=== PATIENT | female | born 1970 | race Caucasian/White ===

== ENCOUNTER 2022-10-26 07:38 | Outpatient (CLI) | payer BC, SELFPAY ==
--- NOTE | ~2022-10-26 | XR_ITS ---
EXAMINATION: SCOLIOSIS DATE: 10/26/2022 08:03 INDICATION: Low back pain TECHNIQUE: Standing AP and lateral views of the thoracolumbar spine FINDINGS: There are 12 rib bearing thoracic vertebral bodies and 5 non-rib bearing lumbar type verteb ral bodies. There is no listhesis, compression deformity or vertebral body anomaly. There are 8 degr ees of thoracolumbar levocurvature. There is mild cervical, thoracic, and lumbar spondylosis. There i s mild irregularity of the T11 superior endplate. IMPRESSION: 1. 8 degrees of thoracolumbar levocurvature. 2. Mild irregularity of the T11 superior endplate which could reflect age-indeterminate fracture. Reviewed, dictated and finalized at location L. SH FILER IMPRESSION: 1. 8 degrees of thoracolumbar levocurvature. 2. Mild irregularity of the T11 superior endplate which could reflect age-indet erminate fracture.
== END 2022-10-26 07:39 | disposition home or self-care (01) ==
PROVIDERS: PCP Internal Medicine; Visit Provider Internal Medicine
DX: M54.50 Low back pain, unspecified (principal); G89.29 Other chronic pain; M54.9 Dorsalgia, unspecified
CPT/HCPCS: 72082

== ENCOUNTER 2023-01-01 10:41 | Outpatient (CLI) | payer BC, SELFPAY ==
--- NOTE | ~2023-01-01 | MR_ITS ---
EXAMINATION: MR brain/brain stem wo/w con DATE: 01/01/2023 11:38 INDICATION: Worsening with migraine headaches TECHNIQUE: Magnetic resonance imaging (MRI) of the brain and brainstem was performed without and with 12 mL Multihance intravenous contrast. Sequences included sagittal and axial T1-weighted SE, axial d iffusion-weighted FS SE, axial T2*-weighted GRE, axial 3D SWAN, axial T2-weighted FLAIR, and axial T2 -weighted FSE. Postcontrast axial and coronal T1-weighted SE was obtained. Apparent diffusion coeffic ient (ADC) maps were created. COMPARISON: None. FINDINGS: There are no areas of restricted diffusion to suggest acute infarction. Symmetric pattern of signal l oss on susceptibility weighted imaging at the bilateral red nuclei and dentate nuclei with the locati ons and symmetric distribution favoring dystrophic calcification or iron deposition over sequela of c hronic hemorrhage. No intracranial hemorrhage or abnormal intracranial mass lesion. There are a few t iny foci of nonspecific increased T2-weighted signal intensity in the cerebral periventricular white matter which is within normal limits for age. There are no intraparenchymal signal abnormalities seen on the other pulse sequences. The ventricles are symmetric and normal in size. There are no abnormal extra-axial fluid collections. Flow voids are seen in the cerebral arteries on the T2-weighted seque nces consistent with their expected patency. Visualized orbits and soft tissues are unremarkable. The re are no areas of abnormal enhancement on the post contrast images. IMPRESSION: 1. No acute intracranial process. Reviewed, dictated and finalized at location A.
== END 2023-01-01 10:42 | disposition home or self-care (01) ==
LOC: ANHIMG 10:43
PROVIDERS: PCP Internal Medicine; Visit Provider Internal Medicine
DX: G43.909 Migraine, unspecified, not intractable, without status migrainosus (principal)
CPT/HCPCS: 70553; A9577

== ENCOUNTER 2023-06-12 10:13 | Outpatient (CLI) | payer OTHER, BC, SELFPAY ==
--- NOTE | ~2023-06-12 | XR_ITS ---
[XR ribs BI 3V w CXR 2V ] INDICATION: Rib pain after recent fall TECHNIQUE: Frontal projection of the upper ribs, frontal projection of the lower ribs, oblique projec tion of all the ribs, frontal inspiratory chest x-ray for interpretation. FINDINGS: There are acute left nondisplaced sixth and eighth rib fractures. There are no soft tissue abnormality seen. There is bibasilar atelectasis/scarring. There are cholecystectomy clips. IMPRESSION: 1: Acute nondisplaced left sixth and eighth rib fractures. Reviewed, dictated and finalized at location A.
--- NOTE | ~2023-06-12 | XR_ITS ---
XR foot LT min 3V, XR ankle LT min 3V 06/12/2023 10:44 (accession [id number]), 06/12/2023 10:45 (accession [id number]) INDICATION: Left foot pain after fall PROCEDURE: 4 views left foot and 4 views left ankle COMPARISON: FINDINGS: Fracture, dislocation or subluxation is not identified. The soft tissues appear within norm al limits. No foreign bodies are identified. Small degenerative calcaneal enthesophyte. IMPRESSION: 1: NO ACUTE BONE OR JOINT ABNORMALITY IDENTIFIED. Reviewed, dictated and finalized at location A. IMPRESSION: 1: NO ACUTE BONE OR JOINT ABNORMALITY IDENTIFIED.
== END 2023-06-12 10:14 | disposition home or self-care (01) ==
PROVIDERS: PCP Internal Medicine; Visit Provider Internal Medicine
DX: M79.672 Pain in left foot (principal); M25.572 Pain in left ankle and joints of left foot; R07.81 Pleurodynia; S22.42XA Multiple fractures of ribs, left side, initial encounter for closed fracture; X58.XXXA Exposure to other specified factors, initial encounter
CPT/HCPCS: 71046; 71110; 73610; 73630

== ENCOUNTER 2023-06-21 07:54 | Outpatient (CLI) | payer OTHER, BC, SELFPAY ==
--- NOTE | ~2023-06-21 | US_ITS ---
EXAMINATION: US venous doppler [facility] DATE: 06/21/2023 12:05 INDICATION: Shortness of breath TECHNIQUE: Grayscale ultrasound images without and with compression and Doppler ultrasound images of the bilateral lower extremity veins were obtained. COMPARISON: None. FINDINGS: The visualized portions of right common femoral vein, profunda (deep) femoral vein, femoral vein, pop liteal vein, posterior tibial veins, peroneal veins, gastrocnemius vein and greater saphenous vein ou tflow are patent. The visualized portions of left common femoral vein, profunda femoral vein, femoral vein, popliteal v ein, posterior tibial veins, peroneal veins, gastrocnemius vein and greater saphenous vein outflow ar e patent. IMPRESSION: 1. No deep venous thrombosis in either lower limb. Reviewed, dictated and finalized at location A.
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
[2023-06-21 08:33] LABS: INR 0.9; Prothrombin Time 12.3 Seconds (11.1-14.7)
[2023-06-21 08:34] LABS: Anion Gap 9 mmol/L (8-16); Blood Urea Nitrogen 18 mg/dL (7-17); Carbon Dioxide 30 mmol/L (22-30); Chloride 100 mmol/L (98-107); Estimated Glomerular Filt Rate > 60; Glucose 94 mg/dL (65-110); Partial Thromboplastin Time 27.8 SECONDS (22.3-36.8); Potassium 4.1 mmol/L (3.4-5.0); Sodium 139 mmol/L (137-145)
[2023-06-21 08:46] LABS: D Dimer 0.73 ug/mL (<0.48)
== END 2023-06-21 07:55 | disposition home or self-care (01) ==
PROVIDERS: PCP Internal Medicine; Visit Provider Internal Medicine
DX: R06.02 Shortness of breath (principal); R06.09 Other forms of dyspnea; R79.89 Other specified abnormal findings of blood chemistry; S22.42XA Multiple fractures of ribs, left side, initial encounter for closed fracture; S22.080D Wedge compression fracture of T11-T12 vertebra, subsequent encounter for fracture with routine healing; K76.89 Other specified diseases of liver; Z90.49 Acquired absence of other specified parts of digestive tract
CPT/HCPCS: 36415; 71046; 71275; 80048; 85380; 85610; 85730; 93970; Q9967

== ENCOUNTER → 2023-10-06 12:44 | Outpatient (CLI) | payer OTHER, SELFPAY ==
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
--- NOTE | ~2023-10-06 | XR_ITS ---
EXAMINATION: XR lumbar spine min 4V DATE: 10/06/2023 13:07 INDICATION: Low back pain TECHNIQUE: Anteroposterior and lateral views in neutral, flexion, and extension of the lumbar spine w ere obtained. COMPARISON: 10/26/2022 FINDINGS: Bone alignment is normal. There is no hypermobility with flexion or extension. The vertebra l body heights are maintained. There is moderate loss of intervertebral disc space height at L5-S1. T here is no fracture. There is moderate facet joint osteoarthritis at L3-4, L4-5, and L5-S1. IMPRESSION: 1. Mild to moderate lumbar spondylosis without acute findings. Reviewed, dictated and finalized at location F. CAL RECORDS SUPERVISOR
== END ==
PROVIDERS: PCP Internal Medicine; Visit Provider Internal Medicine
DX: S82.55XA Nondisplaced fracture of medial malleolus of left tibia, initial encounter for closed fracture (principal); M47.816 Spondylosis without myelopathy or radiculopathy, lumbar region; M19.072 Primary osteoarthritis, left ankle and foot; X58.XXXA Exposure to other specified factors, initial encounter
CPT/HCPCS: 72110; 73718; 73721

== ENCOUNTER → 2023-10-25 12:44 | Outpatient (CLI) | payer BC, SELFPAY ==
--- NOTE | ~2023-10-25 | MR_ITS ---
MRI of the lumbar spine Clinical History: Pain Technique: Axial T2-weighted images, and sagittal T1-weighted, T2-weighted, and and T2 fat-sat images were acquired. Findings: There is no fracture or subluxation of the lumbar spine. Vertebral bodies maintain normal h eight and alignment. No suspicious bone marrow signal abnormality seen. At L1-L2, there is no disc bu lge or herniation. There is minimal facet arthropathy. No central canal stenosis or neural foraminal narrowing. At L2-L3, there is no disc bulge or herniation. There is mild to moderate facet arthritis. No central canal stenosis or neural foraminal narrowing. At L3-L4, there is no disc bulge or herniation. There is mild facet arthropathy. No central canal aramis nosis or neural foraminal narrowing. At L4-L5, there is no disc bulge or herniation. There is mild to moderate facet arthropathy. No centr al canal stenosis or definite neural foraminal narrowing. At L5-S1, there is minimal disc bulge and mild facet arthropathy. No central canal stenosis. There is mild bilateral neural foraminal narrowing. Paravertebral soft tissues are unremarkable. Impression: Mild degenerative spondylosis, as above. Reviewed, dictated and finalized at [facility]. FIC COUNTER Impression: Mild degenerative spondylosis, as above.
--- NOTE | ~2023-10-25 | MR_ITS ---
MRI of the thoracic spine Clinical History: Pain Technique: Axial T2-weighted and gradient images, and sagittal T1-weighted, T2-weighted, and STIR michael ges were acquired. Findings: There is an acute, mild compression fracture deformity of T7, with marrow edema and minimal loss of height. No other fracture or subluxation seen in the thoracic spine. No other bone marrow si gnal abnormality seen. No significant disc bulge or herniation seen at any thoracic level. No spinal canal stenosis or cord compression identified at any thoracic level. No epidural mass or collection seen. Paravertebral soft tissues are unremarkable. Impression: Acute, mild compression fracture deformity of T7. Reviewed, dictated and finalized at location . DENTIAL PROGRAM MANAGER Impression: Acute, mild compression fracture deformity of T7.
== END ==
PROVIDERS: PCP Internal Medicine; Visit Provider Internal Medicine
DX: M43.06 Spondylolysis, lumbar region (principal); S22.060A Wedge compression fracture of T7-T8 vertebra, initial encounter for closed fracture; X58.XXXA Exposure to other specified factors, initial encounter
CPT/HCPCS: 72146; 72148

== ENCOUNTER 2023-12-22 13:45 | Outpatient (CLI) | payer BC, SELFPAY ==
--- NOTE | ~2023-12-22 | DEXA_ITS ---
Bone Density Report Name: LIAM FUENTES Age: 53 Sex: Female Ethnicity: White Date of : 1970 Indication: postmenopausal; screening for osteoporosis; height loss; prior fracture; hysterectomy; Referring Provider: TWILA GALAVIZ Study: Bone densitometry was performed. Exam Date: December 22, 2023 Accession number: [id number] Bone Density: Region BMD T-score Z-score Classification AP Spine (L1-L4) 0.783 -2.4 -1.5 Osteopenia Femoral Neck (Left) 0.704 -1.3 -0.4 Osteopenia Total Hip (Left) 0.756 -1.5 -0.9 Osteopenia Femoral Neck (Right) 0.668 -1.6 -0.7 Osteopenia Total Hip (Right) 0.749 -1.6 -1.0 Osteopenia Total Hip Mean 0.753 -1.6 -1.0 Osteopenia World Health Organization criteria for BMD impression classify patients as: Normal (T-score at or above -1.0), Osteopenia (T-score between -1.0 and -2.5), or Osteoporosis (T-score at or below -2.5). 10-year Fracture Risk: FRAX not reported because: Prior hip or vertebral fracture Clinical Information Provided by Patient: Have had a previous hip or vertebral fracture Has had a low trauma fracture Has used the following medications: Calcium, MTV Has the following medical conditions: Hysterectomy Patient maximum height was 67 Menopause Age: 46 Drinks caffeinated beverages Onset of menses at age 16 Number of children 3 Impression: The patient has low bone mass, based on the Total Spine T-score. The patient has risk factors, including: previous fracture. Discussion: INCREASED RISK OF FRACTURE DUE TO HISTORY OF FRACTURE. The patient's previous fracture puts the patient at high risk of a future fracture. In untreated patients, the risk of osteoporotic fracture increases approximately two-fold for each 1.0 SD decrease in T-score. Low bone density is not the only risk factor for fracture; also consider factors such as patient's age, frailty or poor health, risk of falling, risk of injury, previous osteoporotic fracture, family history of osteoporosis, cigarette smoking, low body weight, etc. Not everyone with a low trauma fracture has osteoporosis; osteomalacia and other metabolic bone disorders should also be considered. Patients who have osteoporosis should be evaluated for specific diseases and conditions (secondary causes) that may cause or contribute to bone loss and fracture risk. National Osteoporosis Foundation (NOF) recommends pharmacologic intervention for patients with a prior hip or vertebral fracture regardless of BMD T-score. The patient should follow a healthful lifestyle (good nutrition with adequate calcium and vitamin D, and appropriate weight-bearing exercise). Follow-Up: Consider a repeat BMD and Vertebral Fracture Assessment (VFA) exam in 2 years or sooner if medically necessary, to reassess this patient's status. Reported by: AINSLEY on 12/22/2023 2:11:0
== END 2023-12-22 13:46 ==
LOC: MICIMG 13:46
PROVIDERS: PCP Internal Medicine; Visit Provider Internal Medicine
DX: M81.0 Age-related osteoporosis without current pathological fracture (principal); M85.88 Other specified disorders of bone density and structure, other site; M85.852 Other specified disorders of bone density and structure, left thigh; M85.851 Other specified disorders of bone density and structure, right thigh
CPT/HCPCS: 77080

== ENCOUNTER 2024-07-27 10:17 | Outpatient (CLI) | payer BC, SELFPAY ==
--- NOTE | ~2024-07-27 | XR_ITS ---
EXAMINATION: XR chest 2V DATE: 07/27/2024 10:26 INDICATION: Cough. Chest pain. Shortness of breath. TECHNIQUE: Frontal and lateral views of the chest were obtained. COMPARISON: Chest 2 views 06/21/2023, chest CT 06/21/2023 FINDINGS: There is mild scarring at the lung apices. There is a nipple shadow in left lower lung zone . No pleural effusion or pneumothorax. The heart size is normal. There are surgical changes of right shoulder. Surgical clips in the right upper quadrant are likely from cholecystectomy. IMPRESSION: 1. Stable mild scarring at the lung apices. Reviewed, dictated and finalized at location A. AINER WASHER MACHINE
== END 2024-07-27 10:18 | disposition home or self-care (01) ==
LOC: GOSHIMG 10:19
PROVIDERS: PCP Internal Medicine; Visit Provider Internal Medicine
DX: R05.9 Cough, unspecified (principal)
CPT/HCPCS: 71046

== ENCOUNTER 2024-07-27 10:31 | Outpatient (CLI) | payer BC, SELFPAY ==
[2024-07-27 14:29] LABS: Basophils Percent Auto 0.4 % (0.2-1.2); Eosinophils Absolute Auto 0.1 K/mm3 (0-0.3); Eosinophils Percent Auto 0.6 % (0-4.4); Hematocrit 41.9 % (37.0-47.0); Hemoglobin 13.7 g/dL (12.0-15.0); Immature Granulocyte Absolute 0.02 K/mm3 (0.00-0.031); Immature Granulocyte Percent A 0.2 % (0-0.5); Lymphocytes Absolute Auto 2.36 K/mm3 (0.9-3.2); Lymphocytes Percent Auto 21.8 % (18.3-44.2); Mean Corpuscular HGB Conc 32.7 g/dl (32-36); Mean Corpuscular Hemoglobin 31.4 pg (26-34); Mean Corpuscular Volume 95.9 fl (80-100); Mean Platelet Volume 10.1 fl (7.4-10.4); Monocytes Absolute Auto 1.1 K/mm3 (0.1-0.6); Monocytes Percent Auto 10.1 % (2.6-8.5); Neutrophils Absolute Auto 7.3 K/mm3 (1.3-6.7); Neutrophils Percent Auto 66.9 % (45.5-73.1); Platelet Count Result 327 k/mm3 (150-375); Red Blood Count 4.37 M/mm3 (4.2-5.4); Red Cell Distribution Width 12.4 % (11.5-14.5); White Blood Count 10.8 K/mm3 (4.5-10.0)
== END 2024-07-27 10:32 | disposition home or self-care (01) ==
LOC: ANHGOSHLAB 10:32
PROVIDERS: PCP Internal Medicine; Visit Provider Internal Medicine
DX: R05.9 Cough, unspecified (principal)
CPT/HCPCS: 36415; 85025

== ENCOUNTER 2024-11-21 15:01 | Outpatient (CLI) | payer BC, SELFPAY ==
--- OUTSIDE RECORDS SUMMARY | 2024-11-21 16:51 | XMS_ITS | Clinical Summary ---
Author Organization [facility] Address [address] [place] [address] Care Team Providers Care Tool Engine Lathe Set Up Operator Name Role Phone Lisa Aguirre DO Primary Care Provider [phone] Allergies Active Allergy Reactions Criticality Noted Date Comments Sulfa (Sulfonamide Antibiotics) Hives High 01/18 Medications No known medications Active Problems No known active problems Resolved Problems Problem Noted Date Diagnosed Date Resolved Date TVH/BS, (584g uterus), A&P, sling 02/12, [id number] 02/12/2015 01/31/2019 Encounters Date Type Department Care Team Description 11/07/2024 External Device Data STL ABSTRACTION Provider, Abstract 10/23/2024 External Device Data STL ABSTRACTION Provider, Abstract 10/11/2024 External Device Data STL ABSTRACTION Provider, Abstract from Last 3 Months Family History Medical History Relation Name Comments Breast Cancer Maternal Aunt Relation Name Status Comments Maternal Aunt Social History Tobacco Use Types Packs/Day Years Used Date Smoking Tobacco: Former Cigarettes Q uit: 02/07/2005 Smokeless Tobacco: Never Tobacco Cessation:Counseling Given: Not Answered Alcohol Use Standard Drinks/Week Comments Yes 0 (1 standard drink = 0.6 oz pur e alcohol) social Feeling Safe Answer Date Recorded Within the last year, have y ou been afraid of your partner or ex-partner? No 02/06/2020 Within the last year, have y ou been humiliated or emotionally abused in other ways by your partner or ex-partner? No Within the last year, have y ou been kicked, hit, slapped, or otherwise physically hurt by your partner or ex-partner? No 02/06/2020 Within the last year, have y ou been raped or forced to have any kind of sexual activity by your partner or ex-partner? No 02/06/2020 Social Connections Answer Date Recorded In a typical week, how many times do you talk on the phone with family, friends, or neighbors? Three times a week 02/06/2020 How often do you get togethe r with friends or relatives? Once a week 02/06/2020 How often do you attend chur or jain services? More than 4 times per year 02/06/2020 Do you belong to any clubs o r organizations such as scientology groups, unions, fraternal or athletic groups, or school groups? Yes 02/06/2020 Attends Club or Organization Meetings Not on zack e 02/06/2020 Are you , , di vorced, , never , or living with a partner? 02/06/2020 Financial Resource Strain Answer Date R ecorded How hard is it for you to pa y for the very basics like food, housing, medical care, and heating? Not hard at all 02/06/2020 Food Insecurity Answer Date Recorded Within the past 12 months, y ou worried that your food would run out before you got the money to buy more. Never true 02/06/20 20 Within the past 12 months, t he food you bought just didn't last and you didn't have money to get more. Never true 02/06/2020 Transportation Needs Answer Date Record ed In the past 12 months, has l ack of transportation kept you from medical appointments or from getting medications? No 01/18 In the past 12 months, has l ack of transportation kept you from meetings, work, or from getting things needed for daily living? No 02/06/2020 Comments No Sex and Gender Information Value Date Recorded Sex Assigned at Not on file Legal Sex Female 10:23 AM CDT Gender Identity Not on file Sexual Orientation Not on file Last Filed Vital Signs Vital Sign Reading Time Taken Comments Blood Pressure 122/80 06/04/2024 8:56 AM CDT Pulse 61 04/08/2021 3:35 PM CDT Temperature 36.4 C (97.5 F) 04/08/2021 3:35 PM CDT Respiratory Rate 17 04/08/2021 3:35 PM CDT Oxygen Saturation 98% 04/08/2021 3:35 PM CDT Inhaled Oxygen Concentration - - Weight 64 kg (141 lb) 06/04/2024 8:56 AM CDT Height 170.2 cm (5' 7 ) 06/04/2024 8:56 AM CDT Body Mass Index 22.08 06/04/2024 8:56 AM CDT Plan of Treatment Upcoming Encounters Date Type Department Care Team (Late st Contact Info) Description 06/05/2025 9:00 AM CDT Office Visit [facility] TRANSIT WORKER - [facility] [address] [facility] [address] [place] [id number] [place] [address] [facility] [address] [place] [address] Health Maintenance Due Date Last Done Comments DTAP/TDAP/TD VACCINES (1 - Tdap) 1990 HEPATITIS B VACCINES (1 of 3 - 19+ 3-dose series) 1990 CERVICAL CANCER SCREENING 2001 COLORECTAL SCREENING 2016 Colorectal Cancer Screening 2016 FIT-DNA Q 3 years 2016 FIT/FOBT Q 1 year 2016 Flex Sig/CT Colonography Q 5 years 2016 ZOSTER VACCINE (1 of 2) 2021 INFLUENZA VACCINE (#1) 2024 Preventative Visit- Commercial 09/19/2024 0 06/04/2024, 05/30/2023, 05/11/2022, Additional history exists BREAST CANCER SCREENING 02/20/2025 02/21/20 24, 07/27/2022, 05/05/2021, Additional history exists Medical Devices Implanted Type Area Instructional Services Librarian Device Identifier Shelf Expiration Date Model / Serial / Lot Sling Desara System Duek-Ds01 - [id number] Implanted:Qty: 1 on 02/12/2015 by Davon Antoine MD at [facility] Sling Urethra [email or web address] 05/18/2017 DUKE-DS01 / / [id number] Procedures Procedure Name Priority Date/Time Associated Diagnosis Comments MAMMO 3D EFRAIN SCREEN BILAT W OR WO CAD Routine 02/21/2024 2:58 PM CDT Encounter for screening mammogram for malignant neoplasm of breast from Last 3 Months or Most Recently Relevant to Health Maintenance Results * MAMMO SCRN BILAT 3D EFRAIN W OR WO CAD (02/21/2024 2:58 PM CDT) Anatomical Region Laterality Modality Breast Bilateral Mammography 02/21/2024 2:58 PM CDT Impressions 02/22/2024 2:50 PM CDT IMPRESSION: Normal screening mammogram. OVERALL FINAL ASSESSMENT: BI-RADS CATEGORY 1 - Negative Recommend annual screening mammography. DICTATION LOCATION: [facility] Narrative 02/22/2024 2:50 PM CDT EXAM: BILATERAL SCREENING DIGITAL MAMMOGRAM WITH 3D TOMOSYNTHESIS AND CAD DATE: 02/21/2024 2:58 PM INDICATION: Screening. COMPARISON STUDIES: 07/27/2023 through 03/26/2020 BREAST COMPOSITION: Heterogeneously dense, which limits the sensitivity of mammography FINDINGS: There is no concerning mass, asymmetry, malignant microcalcification or area of architectural distortion in either breast. There is no change when compared to previous mammograms. Computer aided diagnosis was utilized. 3D tomosynthesis performed in 4 standard projections reveals no evidence of architectural distortion or mass. Procedure Note Galen Lion MD - 02/22/2024 EXAM: BILATERAL SCREENING DIGITAL MAMMOGRAM WITH 3D TOMOSYNTHESIS AND CAD DATE: 02/21/2024 2:58 PM INDICATION: Screening. COMPARISON STUDIES: 07/27/2023 through 03/26/2020 BREAST COMPOSITION: Heterogeneously dense, which limits the sensitivity of mammography FINDINGS: There is no concerning mass, asymmetry, malignant microcalcification or area of architectural distortion in either breast. There is no change when compared to previous mammograms. Computer aided diagnosis was utilized. 3D tomosynthesis performed in 4 standard projections reveals no evidence of architectural distortion or mass. IMPRESSION: Normal screening mammogram. OVERALL FINAL ASSESSMENT: BI-RADS CATEGORY 1 - Negative Recommend annual screening mammography. DICTATION LOCATION: [facility] Thomas Dan MD MAMMO ORDERABLES Final Result from Last 3 Months or Most Recently Relevant to Health Maintenance Insurance CIGNA OA HMO POS [facility] BLUE ACCESS CHOICE Advance Directives For more information, please contact: [phone] * Full Code (Latest Code Status on File) Date Activated Date Inactivated Comments 02/12/2015 6:05 PM 02/13/2015 9:20 PM * Full Code Date Activated Date Inactivated Comments 02/12/2015 9:55 AM 02/12/2015 6:05 PM Care Teams Tool Engine Lathe Set Up Operator Relationship Specialty Start Date End Date Lisa Aguirre DO PCP - General Family Practice 03/26/20
--- NOTE | 2024-11-22 10:48 | WPDPFTINT ---
PFT Procedure Performed PFT Procedure Performed Spirometry with Pre/Post Bronchodilator Plethysmography (Lung Vol) Diffusing Cap (DLCO) Flow Vol Loop PFT Interpretation Lung volumes were measured with the body plethysmography method. Lung volumes are unremarkable. Spirometry showed normal expiratory flow rates and a low FEV1 to FVC ratio of 67%, indicative of obstructive airway disease. Following administration of a bronchodilator there was no significant increase in expiratory flow rates. Lung diffusion capacity is within the normal range. The flow-volume loop is unremarkable. Impression: Mild obstructive airway disease with no response to bronchodilators on this testing. Lung diffusion capacity within the normal range.
== END 2024-11-21 15:02 | disposition home or self-care (01) ==
LOC: ANHPFT 15:04
PROVIDERS: PCP Internal Medicine; Visit Provider Internal Medicine
DX: J44.9 Chronic obstructive pulmonary disease, unspecified (principal)
CPT/HCPCS: 94060; 94726; 94729

== ENCOUNTER 2025-08-29 01:19 | Day surgery (SDC) | payer OTHER, SELFPAY ==
[2025-08-12 10:10] VITALS: BMI 21.9
--- OUTSIDE RECORDS SUMMARY | 2025-08-29 01:21 | XMS_ITS | Clinical Summary ---
Author Organization [facility] Address [address] [place] [address] Care Team Providers Care Technical Documentation Specialist Name Role Phone Lisa Aguirre DO Primary Care Provider [phone] Allergies Active Allergy Reactions Criticality Noted Date Comments Sulfa (Sulfonamide Antibiotics) Hives High 01/18 Medications alendronate (FOSAMAX) 70 mg tablet Take 1 Tablet by mouth every 7 days. 05/17/2025 Active MULTIVITAMIN ORAL Take 1 Tablet by mouth daily. Active VITAMIN B COMPLEX ORAL Take 1 Tablet by mouth daily. Active FIBER ORAL Take 1 Tablet by mouth daily. Active ASCORBIC ACID, VITAMIN C, ORAL Take 1 Tablet by mouth daily. Active CALCIUM ORAL Take 1 Tablet by mouth daily. Active estradioL (ESTRACE) 1 mg tablet Take 1 Tablet (1 mg) by mouth daily. 90 Tablet 2 06/14/2025 Active Active Problems No known active problems Resolved Problems Problem Noted Date Diagnosed Date Resolved Date TVH/BS, (584g uterus), A&P, sling 02/12, [id number] 02/12/2015 01/31/2019 Encounters Date Type Department Care Team Description 08/27/2025 External Device Data STL ABSTRACTION Provider, Abstract 08/13/2025 7:27 AM MENHADEN VESSEL PILOT - 08/13/2025 11:59 PM [facility] Hospital Encounter [facility] [address] [address] Thomas Dan MD Discharge Disposition: Home or Self Care 08/06/2025 External Device Data STL ABSTRACTION Provider, Abstract 07/17/2025 External Device Data STL ABSTRACTION Provider, Abstract 06/07/2025 Results Follow-Up [facility] AUDIT MACHINE OPERATOR - [place] [address] [place] [address] Thomas Dan MD ESTRADIOL, TESTOSTERONE FREE AND TOTAL 06/05/2025 9:00 AM CDT Office Visit [facility] AUDIT MACHINE OPERATOR - [facility] [address] [place] [address] Thomas Dan MD Well woman exam with routine gynecological exam (Primary Dx); Encounter for screening mammogram for malignant neoplasm of breast; Vasomotor symptoms due to menopause from Last 3 Months Family History Medical History Relation Name Comments Breast Cancer Maternal Aunt Relation Name Status Comments Maternal Aunt Social History Tobacco Use Types Packs/Day Years Used Date Smoking Tobacco: Former Cigarettes 0 Q uit: 02/07/2005 Smokeless Tobacco: Never Tobacco Cessation:Counseling Given: No Alcohol Use Standard Drinks/Week Comments Yes 0 [...] 02/06/2020 How often do you attend chur ch or restorationist services? More than 4 times per year 02/06/2020 Do you belong to any clubs o r organizations such as orthodoxy groups, unions, fraternal or athletic groups, or [...] Sign Reading Time Taken Comments Blood Pressure 102/70 06/05/2025 8:55 AM CDT Pulse 61 04/08/2021 3:35 PM CDT Temperature 36.4 C (97.5 F) 04/08/2021 3:35 PM CDT Respiratory Rate 17 04/08/2021 3:35 PM CDT Oxygen Saturation 98% 04/08/2021 3:35 PM CDT Inhaled Oxygen Concentration - - Weight 64.4 kg (142 lb) 06/05/2025 8:55 AM CDT Height 170.2 cm (5' 7) 06/05/2025 8:55 AM CDT Body Mass Index 22.24 06/05/2025 8:55 AM CDT Plan of Treatment Upcoming Encounters Date Type Department Care Team (Late st Contact Info) Description 06/10/2026 8:45 AM CDT Office Visit [facility] AUDIT MACHINE OPERATOR - [facility] [address] [facility] [address] [place] [address] [place] [address] [facility] [address] [place] [address] Health Maintenance Due Date Last Done Comments DTAP/TDAP/TD VACCINES ( Tdap) 1990 HEPATITIS B VACCINES (1 of 3 - 19+ 3-dose series) 1990 COLORECTAL SCREENING 2016 Colorectal Cancer Screening 2016 FIT-DNA Q 3 years 2016 FIT/FOBT Q 1 year 2016 Flex Sig/CT Colonography Q 5 years 2016 ZOSTER VACCINE (1 of 2) 2021 INFLUENZA VACCINE (#1) 2025 BREAST CANCER SCREENING 08/13/2026 08/13/20, 02/21/2024, 07/27/2022, Additional history exists Preventative Visit- Commercial Completed 0 06/05/2025, 06/04/2024, 05/30/2023, Additional history exists Medical Devices Implanted Type Area Tobacco Wrapping Machine Tender Device Identifier Shelf Expiration Date Model / Serial / Lot Sling Desara System Duke-Ds01 - [id number] Implanted:Qty: 1 on 02/12/2015 by Davon Antoine MD at [facility] Sling Urethra [employer] 05/18/2017 DUKE-DS01 / / [id number] Procedures Procedure Name Priority Date/Time Associated Diagnosis Comments MAMMO 3D EFRAIN SCREEN BILAT W OR WO CAD Routine 08/13/2025 7:32 AM MENHADEN VESSEL PILOT Encounter for screening mammogram for malignant neoplasm of breast ESTRADIOL Routine 06/06/2025 2:00 PM CDT Vasomotor symptoms due to menopause TESTOSTERONE FREE AND TOTAL Routine 06/06/2025 2:00 PM CDT Vasomotor symptoms due to menopause from Last 3 Months Results * MAMMO 3D EFRAIN SCREEN BILAT W OR WO CAD (08/13/2025 7:32 AM MENHADEN VESSEL PILOT) Anatomical Region Laterality Modality Breast Bilateral Mammography 08/13/2025 7:34 AM MENHADEN VESSEL PILOT Impressions 08/13/2025 11:32 AM MENHADEN VESSEL PILOT IMPRESSION: Stable bilateral screening mammogram. Recommend routine yearly followup. OVERALL FINAL ASSESSMENT: BI-RADS CATEGORY 1: Negative DICTATION LOCATION: Home Narrative 08/13/2025 11:32 AM MENHADEN VESSEL PILOT BILATERAL SCREENING DIGITAL MAMMOGRAM WITH 3D TOMOSYNTHESIS AND CAD DATE: 08/13/2025 7:32 AM HISTORY: Annual screening study. COMPARISON: Mammograms back to 2020 TECHNIQUE: CC and MLO views of the breasts were obtained digitally and reviewed with CAD. Tomosynthesis was performed in all projections. BREAST COMPOSITION: The breasts are heterogeneously dense, which may obscure small masses FINDINGS: No new or suspicious masses, suspicious calcifications, or areas of asymmetry or distortion are identified. Thomas Dan MD MAMMO ORDERABLES Final Result * TESTOSTERONE FREE AND TOTAL (06/06/2025 2:00 PM CDT) TESTOSTERONE 11 2 - 45 ng/dL [employer] Comment: For additional information, please refer to https://education.[employer]/faq/JZU844 (This link is being provided for informational/educational purposes only.) (Note) This test was developed and its analytical performance characteristics have been determined by [employer]. It has not been cleared or approved by the FDA. This assay has been validated pursuant to the CLIA regulations and is used for clinical purposes. TESTOSTERONE FREE 1.1 0.1 - 6.4 pg/mL [employer] Comment: (Note) This test was developed and its analytical performance characteristics have been determined by [employer]. It has not been cleared or approved by the FDA. This assay has been validated pursuant to the CLIA regulations and is used for clinical purposes. [facility] [employer] [address] [place] [address],[address] [facility] [address] Katiuska Mock MD, PhD Test Performed at: [facility] [address] [place] [address], [address] [place] [address] Katiuska Mock MD,PhD Blood 06/06/2025 2:00 PM CDT 06/06/2025 2:01 PM CDT Thomas Dan MD CHEMISTRY ORDERABLES Final Re sult [facility] [phone] [employer] [address] [place] [address], [address] [place] [address] * ESTRADIOL (06/06/2025 2:00 PM CDT) ESTRADIOL 18 pg/mL Inaika sarah Arguelles Comment: Reference Range Follicular Phase: 19-144 Mid-Cycle: 64-357 Luteal Phase: 56-214 Postmenopausal: < or = 31 Reference range established on post-pubertal patient population. No pre-pubertal reference range established using this assay. For any patients for whom low Estradiol levels are anticipated (e.g. males, pre-pubertal children and hypogonadal/post-menopausal females), the Inaika [facility] Estradiol, Ultrasensitive, LCMSMS assay is recommended (order code 28369). Please note: patients being treated with the drug fulvestrant (Faslodex(R)) have demonstrated significant interference in immunoassay methods for estradiol measurement. The cross reactivity could lead to falsely elevated estradiol test results leading to an inappropriate clinical assessment of estrogen status. Inaika order code [id number], Ultrasensitive LC/MS/MS demonstrates negligible cross reactivity with fulvestrant. Test Performed at: [facility] [place] [address] Administration MICHELLE [place] [phone] L[employer] Fang Vo Blood 06/06/2025 2:00 PM CDT 06/06/2025 2:01 PM CDT us Thomas Dan MD CHEMISTRY ORDERABLES Final Re sult [facility] [phone] [place] [address] Administration MICHELLE [place] [phone] from Last 3 Months Insurance CIGNA OA HMO POS [facility] OPTIONS PPO [id number] Advance Directives For more information, please contact: [phone] * Full Code (Latest Code Status on File) Date Activated Date Inactivated Comments 02/12/2015 6:05 PM 02/13/2015 9:20 PM * Full Code Date Activated Date Inactivated Comments 02/12/2015 9:55 AM 02/12/2015 6:05 PM Care Teams Technical Documentation Specialist Relationship Specialty Start Date End Date Lisa Aguirre DO PCP - General Family Practice 03/26/20
--- OUTSIDE RECORDS SUMMARY | 2025-08-29 01:21 | XMS_ITS | Encounter Summary ---
Author Organization [facility] Address [address] [place] [address] Care Team Providers Care Community Worker Name Role Phone Lisa Aguirre DO Primary Care Provider [phone] Encounter Details Date Type Department Care Team (Late st Contact Info) Description 08/27/2025 External Device Data STL ABSTRACTION Provider, Abstract NO ADDRESS ON FILE Social History Tobacco Use Types Packs/Day Years Used Date Smoking Tobacco: Former Cigarettes 0 Q uit: 02/07/2005 Smokeless Tobacco: Never Alcohol Use Standard Drinks/Week Comments Yes 0 [...] often do you attend chur ch or gnosticism services? More than 4 times per year 02/06/2020 Do you belong to any clubs o r organizations such as latter day groups, unions, fraternal or athletic groups, or [...] on file Sexual Orientation Not on file documented as of this encounter Plan of Treatment Upcoming Encounters Date Type Department Care Team (Late st Contact Info) Description 06/10/2026 8:45 AM CDT Office Visit [facility] CORPORATE ANALYST - [facility] [address] [facility] [address] [place] [address] [place] [address] [facility] [address] [place], [place] [id number] documented as of this encounter Visit Diagnoses Not on filedocumented in this encounter Care Teams Community Worker Relationship Specialty Start Date End Date Sorenanisha DO Lisa PCP - General Family Practice 03/26/20 documented as of this encounter
[2025-08-29 10:23] VITALS: BP 113/71; PULSE 73; RESP 16; TEMP 36.9; O2SAT 97; BMI 21.1
[2025-08-29] MEDS: LACTATED RINGERS 1,000 ML 150 ML IV CONT (10:27)
--- NOTE | 2025-08-29 10:30 | WPDANESEPPF ---
Anes - Initial Pre Proc Eval Procedure: Operation Date: 08/29/25 11:30 Proposed Procedures p Diagnostic Colonoscopy - David Clayton MD Date/Time: 08/29/25 10:30 Surgeon: David Clayton MD Pre Op Diagnosis: Constipation, unspecified Patient Data Age: 55 Gender: F Height: 1.7 m Weight: 61.2 kg Last Vital Signs Temp 36.9 C 08/29/25 10:23 Pulse 73 08/29/25 10:23 Resp 16 08/29/25 10:23 BP 113/71 08/29/25 10:23 Pulse Ox 97 08/29/25 10:23 O2 Del Method Room Air 08/29/25 10:23 Allergies Allergy/AdvReac Type Severity Reaction Status Date / Time Sulfa (Sulfonamide AdvReac Unknown Verified 08/29/25 10:21 Antibiotics) Home Medications ?Medication ?Instructions ?Recorded ?Confirmed ?Type multivitamin 1 tablet PO DAILY 10/01/22 08/29/25 History vitamin B complex 1 tablet PO DAILY 10/01/22 08/29/25 History ascorbate calcium (vitamin C) 500 500 mg PO DAILY 11/05/22 08/29/25 History mg tablet calcium carbonate 650 mg PO DAILY 11/05/22 08/29/25 History inulin 2 gram chewable tablet 6 g PO DAILY 11/05/22 08/12/25 History (Fiber Gummies) acetaminophen 500 mg tablet 500 mg PO Q6H PRN pain 06/14/23 08/12/25 History albuterol sulfate 90 mcg/actuation 1 puff inhalation Q4H PRN 11/14/24 08/12/25 Rx aerosol inhaler (Ventolin HFA) shortness of breath or wheezing #8.5 grams alendronate 70 mg tablet 70 mg PO WEEKLY #12 tabs 04/22/25 08/29/25 Rx cyclobenzaprine 10 mg tablet 10 mg PO TID PRN muscle spasm #30 05/07/25 08/12/25 Rx tabs estradiol 1 mg BYMOUTH DAILY 07/24/25 08/29/25 History Patient hx anesthesia problems: none Family hx anesthesia problems: none Results Review: All pre-operative results and documents have been reviewed as part of the pre-operative evaluation. [facility] Past Medical History Medical History Knee pain Constipation Dyslipidemia Breast cancer screening Osteopenia Closed left ankle fracture SOFIA (dyspnea on exertion) Left ankle injury Rib fractures Encounter for preventive health examination BMI 23.0-23.9, adult Motion sickness BMI 22.0-22.9, adult Follow up Migraines Levoscoliosis Chronic low back pain Colon cancer screening Encounter to establish care Anxiety Generalized headaches BMI 21.0-21.9, adult Seasonal allergies Surgical History Surgical History History of cholecystectomy Laparoscopic- 1994 S/P shoulder surgery R side-arthroscopic History of bladder surgery Bladder sling H/O total hysterectomy Family History Family History Mother Dementia Unknown Asthma Hypertension Depression Diabetes mellitus Cerebrovascular accident High cholesterol Cervical cancer Social History Social History Social History: caffeine use Smoking status: Former smoker Second hand tobacco smoke exposure: No Alcohol intake: current Alcohol use details: Liquor- 1 drink 3-4x/ week Substance use: never Lack of Transportation: No Lack of Food: Never True Current Housing: I Have Housing Concerned About Future Housing: No Difficulty Paying Gas/Electric Bills: No Difficulty Paying for Meds: No Currently Unemployed: No Education: Bachelor's Degree Difficulty w/ Childcare or Family Care: No Living arrangements: with family Gender identity (if verbalized by the patient): Female Anes - Eval Final PreProcedure Day of Procedure 08/29/25 10:30 Patient weight: normal Heart: regular rate and rhythm Lungs: normal air movement Airway: Mallampati scale class II Neurological: alert and oriented Last oral intake: >/= 8 hours ASA classification: II Emergent: no Anesthetic plan: proceed Anesthesia type and monitoring: general GIVS and standard monitoring Results Review: All pre-operative results and documents have been reviewed as part of the pre-operative evaluation. Informed Consent: The patient's anesthetic plan and its attendant risks and benefits were discussed with the patient/family/POA. Questions were solicited and answers provided to the satisfaction of the patient/family/POA.
--- NOTE | 2025-08-29 10:32 | PM.IMHP2 ---
H&P: HPI History of Present Illness Date/Time: 08/29/25 10:32 Chief Complaint: Screening colonoscopy Narrative: This is the patient's 2nd colonoscopy. She had a colonoscopy 15 years ago. There are no GI symptoms and there is no family history of colorectal cancer. Review of Systems Review of Systems: All systems reviewed & are unremarkable except as noted in HPI and below PMFSH Past Medical History Medical History Knee pain Constipation Dyslipidemia Breast cancer screening Osteopenia Closed left ankle fracture SOFIA (dyspnea on exertion) Left ankle injury Rib fractures Encounter for preventive health examination BMI 23.0-23.9, adult Motion sickness BMI 22.0-22.9, adult Follow up Migraines Levoscoliosis Chronic low back pain Colon cancer screening Encounter to establish care Anxiety Generalized headaches BMI 21.0-21.9, adult Seasonal allergies Surgical History Surgical History History of cholecystectomy Laparoscopic- 1994 S/P shoulder surgery R side-arthroscopic History of bladder surgery Bladder sling H/O total hysterectomy Family History Family History Mother Dementia Unknown Asthma Hypertension Depression Diabetes mellitus Cerebrovascular accident High cholesterol Cervical cancer Social History Social History Social History: caffeine use Smoking status: Former smoker Second hand tobacco smoke exposure: No Alcohol intake: current Alcohol use details: Liquor- 1 drink 3-4x/ week Substance use: never Lack of Transportation: No Lack of Food: Never True Current Housing: I Have Housing Concerned About Future Housing: No Difficulty Paying Gas/Electric Bills: No Difficulty Paying for Meds: No Currently Unemployed: No Education: Bachelor's Degree Difficulty w/ Childcare or Family Care: No Living arrangements: with family Gender identity (if verbalized by the patient): Female Meds Home Medications and Allergies Home Medications ?Medication ?Instructions ?Recorded ?Confirmed ?Type multivitamin 1 tablet PO DAILY 10/01/22 08/29/25 History vitamin B complex 1 tablet PO DAILY 10/01/22 08/29/25 History ascorbate calcium (vitamin C) 500 500 mg PO DAILY 11/05/22 08/29/25 History mg tablet calcium carbonate 650 mg PO DAILY 11/05/22 08/29/25 History inulin 2 gram chewable tablet 6 g PO DAILY 11/05/22 08/12/25 History (Fiber Gummies) acetaminophen 500 mg tablet 500 mg PO Q6H PRN pain 06/14/23 08/12/25 History albuterol sulfate 90 mcg/actuation 1 puff inhalation Q4H PRN 11/14/24 08/12/25 Rx aerosol inhaler (Ventolin HFA) shortness of breath or wheezing #8.5 grams alendronate 70 mg tablet 70 mg PO WEEKLY #12 tabs 04/22/25 08/29/25 Rx cyclobenzaprine 10 mg tablet 10 mg PO TID PRN muscle spasm #30 05/07/25 08/12/25 Rx tabs estradiol 1 mg BYMOUTH DAILY 07/24/25 08/29/25 History Allergies Allergy/AdvReac Type Severity Reaction Status Date / Time Sulfa (Sulfonamide AdvReac Unknown Verified 08/29/25 10:21 Antibiotics) Vital Signs Vital Signs - 24 hr 08/29/25 10:23 Temperature 98.4 F Pulse Rate 73 Respiratory Rate 16 Blood Pressure 113/71 Pulse Oximetry 97 Oxygen Delivery Room Air Exam Const: General: cooperative and healthy appearing Resp: Effort & Inspection: normal respiratory effort and able to speak in complete sentences Auscultation: clear to auscultation bilaterally Cardio: Rate: regular rate Rhythm: regular rhythm GI: Inspection: normal to inspection GI Palp: No No hepatosplenomegaly present Auscultation: normal bowel sounds Rectal Exam: deferred Skin: General skin exam: normal color Psych: Appearance: grossly normal Mental Status: mental status grossly normal Assessment and Plan Assessment and plan (1) Colon cancer screening: Code(s): Z12.11 - Encounter for screening for malignant neoplasm of colon Status: Acute Assessment and Plan: The patient is deemed a good candidate for the procedure. Consent signed. Will proceed. Prior Studies I have reviewed the following patient records and this information was taken into consideration when formulating the assessment and plan.: previous labs, previous ER visits, previous hospitalizations and previous clinic visits
[2025-08-29 10:53] VITALS: BP 88/56; PULSE 77; RESP 16; O2SAT 98
[2025-08-29 11:03] VITALS: BP 94/61; PULSE 74; RESP 18; O2SAT 99
[2025-08-29 11:13] VITALS: BP 104/66; PULSE 64; RESP 18; O2SAT 99
== END 2025-08-29 11:35 | disposition home or self-care (01) ==
PROVIDERS: PCP Internal Medicine; Referring Provider Internal Medicine; Visit Provider Internal Medicine Gastroenterology
PROC: 0DJD8ZZ Inspection of Lower Intestinal Tract, Via Natural or Artificial Opening Endoscopic (ICD-10-PCS; CPT 45378; principal; 2025-08-29 11:30)
DX: Z12.11 Encounter for screening for malignant neoplasm of colon (principal); K64.8 Other hemorrhoids; E78.5 Hyperlipidemia, unspecified; Z87.891 Personal history of nicotine dependence
CPT/HCPCS: 45378; J2003; J2704; J7120